=== PATIENT | female | born 1965 | race American Indian/Alaskan Native ===

== ENCOUNTER 2020-04-01 18:56 | Emergency (ER) | payer BC, OTHER ==
[2020-04-01] MEDS ORDERED: Sodium Chloride 0.9% 1,000 ML IV ONE (19:19)
[2020-04-01] MEDS ORDERED: Ondansetron 4 MG/2 ML SDV IVPUSH ONE (19:19)
[2020-04-01] MEDS ORDERED: Ketorolac 30 MG/ML SDV IVPUSH ONE (19:19)
--- NOTE | 2020-04-01 19:29 | EDM.PDOC ---
ED HPI GENERAL MEDICAL PROBLEM - General Chief Complaint: Respiratory Problem Stated Complaint: COLD/IBS FLARE UP Time Seen by Provider: 04/01/20 19:15 Source of Information: Reports: Patient History Limitations: Reports: No Limitations - History of Present Illness INITIAL COMMENTS - FREE TEXT/NARRATIVE: HISTORY AND PHYSICAL: History of present illness: Patient is a 54-year-old female who presents to the emergency room with complaints of generalized body aches, right ear pain, sinus congestion, cough, nausea, vomiting, and generally feeling unwell x1 week. She states she has not eaten or drank much over the past 2 days and is concerned she may be dehydrated. She does have some chest pain and right upper abdominal pain when she is retching from vomiting. When she is not actively vomiting, she does not have the chest or abdominal pain, rather "everything just aches". She has been using [id number] modalities without any relief. Patient denies any headache, ch brendan in vision, syncope or near syncope. Denies any neck stiffness/pain, back pain, shortness of breath, or hemoptysis. Denies any diarrhea, constipation or dysuria. Has not noted any blood in urine or stool. Patient has been eating and drinking appropriately. She was tested for COVID-19 a few days ago, although has not received results. Review of systems: As per history of present illness and below otherwise all systems reviewed and negative. Past medical history: As per history of present illness and as reviewed below otherwise noncontributory. Surgical history: As per history of present illness and as reviewed below otherwise noncontributory. Social history: See social history for further information Family history: As per history of present illness and as reviewed below otherwise noncontributory. Physical exam: General: Well developed and well nourished. Alert and orientated x 3. Nontoxic in appearance and in no acute distress. Vital signs are stable and have been reviewed by me. Nursing notes were reviewed. HEENT: Atraumatic, normocephalic, pupils equal and reactive bilaterally, negative for conjunctival pallor or scleral icterus, mucous membranes moist, TMs normal bilaterally, throat clear, neck supple, nontender, trachea midline. No drooling or trismus noted. No meningeal signs. No hot potato voice noted. Lungs: Clear to auscultation, breath sounds equal bilaterally, chest nontender. Normal work of breathing, no accessory muscles used. Nonproductive cough noted. Heart: S1S2, regular rate and rhythm without overt murmur Abdomen: Soft, nondistended, nontender. Negative for masses or hepatosplenomegaly. Negative for costovertebral tenderness. Skin: Intact, warm, dry. No lesions or rashes noted. Hematologic: No petechiae or purpra. Mucosa appropriate color and normal nail bed color and refill. Extremities: Atraumatic, moves all extremities per self without difficulty or deficits, negative for cords or calf pain. Neurovascular unremarkable. Neuro: Awake, alert, oriented. Cranial nerves II through XII unremarkable. Cerebellum unremarkable. Motor and sensory unremarkable throughout. Exam nonfocal. Psychiatric: Mood and affect are appropriate. Normal thought process. Answering questions appropriately. Notes: Patient tested positive for COVID-19. Her lab work is unremarkable. EKG shows a sinus rhythm with rate of 85, no STEMI. I have spoken with the patient and discussed today's findings, in addition to providing specific details for plan of care. Reassessment at the time of disposition demonstrates that the patient is in no acute distress. The patient has remained stable throughout the entire ED visit, counseling was provided and we discussed in great detail signs and symptoms that would prompt her to return to the Emergency Department. OTC medication, follow up and supportive care measures were reviewed and discussed. Voices understanding and is agreeable to plan of care. Denies any further questions or concerns at this time. Diagnostics: CBC, CMP, Troponin, EKG, CXR, COVID, UA [employer]rapeutics: IV fluids, Zofran, Toradol Prescription: Phenergan with codeine Impression: COVID-19 Plan: 1. Your COVID-19 screening is positive. That means you do have the coronavirus and are considered contagious. Your vital signs and oxygen saturation are well enough that you were able to monitor your symptoms at home. Continue to monitor for trouble breathing, new confusion or inability to arouse, bluish lips or face or any of the other symptoms we discussed -if this occurs please return to the emergency room. 2. Please self quarantine over the next 2 weeks. Inform any persons that you have been in contact with since you started becoming symptomatic that you have tested positive; they should be made aware and take the appropriate steps as needed. 3. You can take NyQuil during the evening to help get a restful night sleep. 4. You may alternate Tylenol and ibuprofen as needed for pain and fever management. 5. The [facility] will be calling you and following up with you. The [place] COVID 19 Hotline phone number , They are open Wednesday - Wednesday 7am - 7pm. Follow up with your primary care provider for re-evaluation and re-testing after the 2 week quarantine and discuss when you should be seen. Definitive disposition and diagnosis as appropriate pending reevaluation and review of above. breathing chest pain Pain Score (Numeric/FACES): 8 - Related Data Allergies Allergy/AdvReac Type Severity Reaction Status Date / Time No Known Allergies Allergy Verified 04/01/20 19:13 Home Meds: Home Meds . [No Known Home Meds] 04/01/20 [History] Past Medical History HEENT History: Reports: Sinusitis Other HEENT History: R ear sx x 3 Other Gastrointestinal History: "leaky gut" Other TEST BAKER History: vaginal mesh sx - Past Surgical History HEENT Surgical History: Reports: Tonsillectomy Social & Family History - Caffeine Use Caffeine Use: Reports: Tea - Recreational Drug Use Recreational Drug Use: Yes ED ROS GENERAL - Review of Systems Review Of Systems: Comprehensive ROS is negative, except as noted in HPI. ED EXAM, GENERAL - Physical Exam Exam: See Below (See dictation) Course - Vital Signs Last Recorded V/S: Last Vital Signs Temp 98.5 F 04/01/20 19:05 Pulse 71 04/01/20 20:08 Resp 20 04/01/20 20:08 BP 118/68 04/01/20 20:08 Pulse Ox 98 04/01/20 20:08 - Orders/Labs/Meds Orders: Active Orders 24 hr Category Date Time Status EKG Documentation Completion [RC] STAT Care 04/01/20 19:19 Active Chest 1V Frontal [CR] Stat Exams 04/01/20 20:20 Ordered CORONAVIRUS COVID-19 PCR PHL Stat Lab 04/01/20 19:45 Received UA RFX HENRI AND CULT IF INDIC [URIN] Stat Lab 04/01/20 19:20 Ordered Labs: Laboratory Tests 04/01/20 04/01/20 04/01/20 Range/Units 19:40 19:40 19:45 WBC 7.36 (4.0-11.0) K/uL RBC 5.53 (4.30-5.90) M/uL Hgb 15.9 (12.0-16.0) g/dL Hct 46.3 H (36.0-46.0) % MCV 83.7 (80.0-98.0) fL MCH 28.8 (27.0-32.0) pg MCHC 34.3 (31.0-37.0) g/dL RDW Std Deviation 39.0 (28.0-62.0) fl RDW Coeff of [place] 13 (11.0-15.0) % Plt Count 232 (150-400) K/uL MPV 10.60 (7.40-12.00) fL Neut % (Auto) 68.6 (48.0-80.0) % Lymph % (Auto) 22.7 (16.0-40.0) % Swain % (Auto) 8.6 (0.0-15.0) % Eos % (Auto) 0.0 (0.0-7.0) % Baso % (Auto) 0.1 (0.0-1.5) % Neut # (Auto) 5.1 (1.4-5.7) K/uL Lymph # (Auto) 1.7 (0.6-2.4) K/uL Swain # (Auto) 0.6 (0.0-0.8) K/uL Eos # (Auto) 0.0 (0.0-0.7) K/uL Baso # (Auto) 0.0 (0.0-0.1) K/uL Nucleated RBC % 0.0 /100WBC Nucleated RBCs # 0 K/uL Sodium 138 (136-145) mmol/L Potassium 4.7 (3.5-5.1) mmol/L Chloride 101 (98-107) mmol/L Carbon Dioxide 22.9 (21.0-32.0) mmol/L BUN 10 (7.0-18.0) mg/dL Creatinine 0.8 (0.6-1.0) mg/dL Est Cr Clr Drug Dosing 61.37 mL/min Estimated GFR (MDRD) > 60.0 ml/min Glucose 79 (74-106) mg/dL Calcium 9.4 (8.5-10.1) mg/dL Total Bilirubin 0.5 (0.2-1.0) mg/dL AST 46 H (15-37) IU/L ALT 34 (14-63) IU/L Alkaline Phosphatase 120 H (46-116) U/L Troponin I < 0.050 (0.000-0.056) ng/mL Total Protein 8.2 (6.4-8.2) g/dL Albumin 3.8 (3.4-5.0) g/dL Globulin 4.4 H (2.6-4.0) g/dL Albumin/Globulin Ratio 0.9 (0.9-1.6) Lipase 75 (73-393) U/L SARS CoV-2 RNA Rapid APOLLO POSITIVE H (NEGATIVE) Meds: Medications Discontinued Medications Generic Name Dose Route Start Last Admin Trade Name Freq PRN Reason Stop Dose Admin Sodium Chloride 1,000 mls @ 999 mls/hr 04/01/20 19:19 04/01/20 19:37 Normal Saline IV 04/01/20 20:19 999 mls/hr STAT ONE Administration Ketorolac Tromethamine 30 mg 04/01/20 19:19 04/01/20 19:37 Toradol IVPUSH 04/01/20 19:20 30 mg ONETIME ONE Administration Ondansetron HCl 4 mg 04/01/20 19:19 04/01/20 19:37 Zofran IVPUSH 04/01/20 19:20 4 mg ONETIME ONE Administration Departure - Departure Time of Disposition: 20:43 Disposition: Home, Self-Care 01 Clinical Impression: COVID-19 - Discharge Information Instructions: COVID-19 Referrals: PCP,Not In Area [Primary Care Provider] - Forms: ED Department Discharge Additional Instructions: The following information is given to patients seen in the emergency department who are being discharged to home. This information is to outline your options for follow-up care. We provide all patients seen in our emergency department with a follow-up referral. The need for follow-up, as well as the timing and circumstances, are variable depending upon the specifics of your emergency department visit. If you don't have a primary care physician on staff, we will provide you with a referral. We always advise you to contact your personal physician following an emergency department visit to inform them of the circumstance of the visit and for follow-up with them and/or the need for any referrals to a consulting specialist. The emergency department will also refer you to a specialist when appropriate. This referral assures that you have the opportunity for follow-up care with a specialist. All of these measure are taken in an effort to provide you with optimal care, which includes your follow-up. Under all circumstances we always encourage you to contact your private physician who remains a resource for coordinating your care. When calling for follow-up care, please make the office aware that this follow-up is from your recent emergency room visit. If for any reason you are refused follow-up, please contact the [facility] Emergency Department at and asked to speak to the emergency department charge nurse. [facility] [address] [place] [id number] [address] Thank you for choosing the [facility] emergency department in [place] for your medical needs today. It was a pleasure caring for you. Today you were seen in the emergency department for respiratory/GI symptoms. 1. Your COVID-19 screening is positive. That means you do have the coronavirus and are considered contagious. Your vital signs and oxygen saturation are well enough that you were able to monitor your symptoms at home. Continue to monitor for trouble breathing, new confusion or inability to arouse, bluish lips or face or any of the other symptoms we discussed -if this occurs please return to the emergency room. 2. Please self quarantine over the next 2 weeks. Inform any persons that you have been in contact with since you started becoming symptomatic that you have tested positive; they should be made aware and take the appropriate steps as needed. 3. You can take NyQuil during the evening to help get a restful night sleep. 4. You may alternate Tylenol and ibuprofen as needed for pain and fever management. 5. The [facility] will be calling you and following up with you. The [place] COVID 19 Hotline phone number , They are open Wednesday - Wednesday 7am - 7pm. Follow up with your primary care provider for re-evaluation and re-testing after the 2 week quarantine and discuss when you should be seen. Sepsis Event Note (ED) - Evaluation Sepsis Screening Result: No Definite Risk - Focused Exam Vital Signs: Vital Signs Temp Pulse Resp BP Pulse Ox 04/01/20 20:08 71 20 118/68 98 04/01/20 19:05 98.5 F 94 20 116/78 94 L - My Orders Last 24 Hours: My Active Orders 04/01/20 19:19 EKG Documentation Completion [RC] STAT 04/01/20 19:20 UA RFX HENRI AND CULT IF INDIC [URIN] Stat 04/01/20 19:45 CORONAVIRUS COVID-19 PCR PHL Stat 04/01/20 20:20 Chest 1V Frontal [CR] Stat - Assessment/Plan Last 24 Hours: My Active Orders 04/01/20 19:19 EKG Documentation Completion [RC] STAT 04/01/20 19:20 UA RFX HENRI AND CULT IF INDIC [URIN] Stat 04/01/20 19:45 CORONAVIRUS COVID-19 PCR PHL Stat 04/01/20 20:20 Chest 1V Frontal [CR] Stat
[2020-04-01 20:20] LABS: BLOOD UREA NITROGEN,BUN 10 mg/dL (7.0-18.0); CARBON DIOXIDE,CO2 22.9 mmol/L (21.0-32.0); CHLORIDE,CL 101 mmol/L (98-107); GLUCOSE RANDOM 79 mg/dL (74-106); LIPASE 75 U/L (73-393); POTASSIUM,K 4.7 mmol/L (3.5-5.1); SODIUM,NA 138 mmol/L (136-145)
--- NOTE | 2020-04-01 21:07 | CR ---
Chest: Portable view of the chest was obtained. Comparison: No previous chest imaging. Slight parenchymal density with a right base and left upper lung. Heart size and mediastinum are normal. Bony structures are unremarkable. Impression: 1. Slight parenchymal densities as noted above. Findings raise the possibility of pneumonia with differential including both bacterial and viral etiology. Please rule out Covid 19. Diagnostic code #3 This report was dictated in MDT
== END 2020-04-01 21:20 | disposition home or self-care (01) ==
LOC: MW.ED 18:56
DX: U07.1 COVID-19 (principal)
CPT/HCPCS: 36415; 71045; 80053; 83690; 84484; 85025; 87635; 93005; 96361; 96374; 96375; 99284; J1885; J2405; J7030; U0002